=== PATIENT | female | born 1970 | race Caucasian/White ===

== ENCOUNTER 2016-10-02 10:13 | Emergency (ER) | payer MEDICARE, MEDICAID ==
[~2016-10-02] VITALS: Ht 162.6 cm; Wt 72.7 kg
[~2016-10-02 10:13] MED LIST: AMBIEN10 MG PO; AMITRIPTYLIN25 MG PO; AMLODIPINE2.5 MG; AMLODIPINE2.5 MG PO; AMOXICILLIN/PO500 MG PO; BACTRIM DS1 TAB PO; CARVEDILOL3.125 MG PO; CIPROFLOXACN500 MG PO; CLOPIDOGREL75 MG PO; DIFLUCAN150 MG PO; DILAUDID2 MG PO; HYDROCORT AC2.5% TOP; LEVOTHYROXIN150 MCG PO; LEVOTHYROXIN175 MC1 PO; LIPITOR40 M1 PO; LISINOPRIL2.5 MG PO; METFORMIN850 MG PO; NAPROSYN500 MG PO; OXYCODONE HCL5 MG PO; PANTOPRAZOLE SO40 MG PO; PENICILLIN VK250 MG PO; PERCOCET1 TA4 PO; RANITIDINE150 M1 PO; TIZANIDINE HCL4 M1 PO; TOPAMAX100 M1 PO; TOPAMAX200 M1 PO; TOPIRAMATE100 MG PO; TOPIRAMATE50 MG PO; VIMPAT200 MG PO; ZPAK PO; [UNRECOGNIZED DRUG - OTHER] PO; [UNRECOGNIZED DRUG - OTHER] PO
[2016-10-02] MEDS ORDERED: LEVOTHYROXIN175 MC1 PO (10:44)
[2016-10-02] MEDS ORDERED: MORPHINE SUL30 M3 PO (10:46)
[2016-10-02] MEDS ORDERED: PERCOCET 10/31 COMBO PO (10:47)
[2016-10-02] MEDS ORDERED: FUROSEMIDE20 MG PO (10:47)
[2016-10-02] MEDS ORDERED: PANTOPRAZOLE SO40 MG PO (10:48)
[2016-10-02] MEDS ORDERED: RANITIDINE150 M1 PO (10:48)
[2016-10-02 11:05] LABS: HEMATOCRIT 39.8 % (37.0-47.0); HEMOGLOBIN 13.6 g/dl (12.0-16.0); IMMATURE GRANULOCYTES 0.2 % (0.0-1.0); MEAN CELL VOLUME 96.6 fL CALC (80.0-100.0); MEAN CORPUSCULAR HGB CONC 34.2 g/L CALC (32.0-36.0); NEUT# 4.41 thou/uL (2.00-7.15); RED BLOOD COUNT 4.12 mill/uL (4.20-5.60); RED CELL DISTRI WIDTH 13.5 % (11.5-15.5)
[2016-10-02 11:07] LABS: URINE BILIRUBIN - DIPSTICK NEGATIVE (NEGATIVE); URINE BLOOD DIPSTICK SMALL (NEGATIVE); URINE COLOR YELLOW; URINE GLUCOSE - DIPSTICK NEGATIVE (NEGATIVE); URINE KETONE NEGATIVE (NEGATIVE); URINE NITRITE - DIPSTICK NEGATIVE (Negative); URINE PROTEIN - DIPSTICK NEGATIVE (NEG-TRACE); URINE SPECIFIC GRAVITY 1.015; URINE UROBILINOGEN - DIPSTICK 0.2 E.U./dL (0.2)
[2016-10-02 11:08] LABS: URINE CLARITY HAZY; URINE LEUK ESTERASE SMALL (NEGATIVE)
[2016-10-02 11:15] LABS: URINE SQUAMOUS EPITHELIAL CELL MODERATE EPI/hpf (0-FEW)
[2016-10-02 11:23] LABS: ALBUMIN 4.4 g/dL (3.2-5.0); ALKALINE PHOSPHATASE 47 u/l (38-126); ANION GAP 13 (6-22 (CALC)); BILIRUBIN, TOTAL 0.4 mg/dL (0.0-1.4); BUN 10 mg/dL (7-17); BUN/CREATININE RATIO 12 (12-20 (CALC)); CALCIUM 9.8 mg/dL (8.4-10.2); CARBON DIOXIDE 27 mmol/l (22-30); CHLORIDE 109 mmol/l (95-108); CREATININE 0.8 mg/dL (0.5-1.0); GFR > 60 ML/MIN (>=60 (CALC)); GFR FOR AFR.AMER. > 60 ML/MIN (>=60 (CALC)); GLUCOSE 111 mg/dL (65-105); POTASSIUM 4.2 mmol/l (3.5-5.1); SGOT/AST 16 u/l (14-36); SGPT/ALT 24 u/l (9-52); SODIUM 145 mmol/l (137-146); TOTAL PROTEIN 6.6 g/dL (6.3-8.2)
[2016-10-02] MEDS ORDERED: BACTRIM DS1 TAB PO (11:35)
[2016-10-02 11:40] VITALS: BP 95/54
== END 2016-10-02 11:56 | disposition home or self-care (01) ==
LOC: ED 10:13
PROVIDERS: Emergency Medicine
DX: N20.1 Calculus of ureter (principal); E11.9 Type 2 diabetes mellitus without complications; I25.10 Atherosclerotic heart disease of native coronary artery without angina pectoris; I25.2 Old myocardial infarction; E78.00 Pure hypercholesterolemia, unspecified; I10 Essential (primary) hypertension; K21.9 Gastro-esophageal reflux disease without esophagitis; E03.9 Hypothyroidism, unspecified; G40.909 Epilepsy, unspecified, not intractable, without status epilepticus; F17.210 Nicotine dependence, cigarettes, uncomplicated; Z95.5 Presence of coronary angioplasty implant and graft

== ENCOUNTER 2016-10-24 17:42 | Emergency (ER) | payer MEDICARE, MEDICAID ==
[~2016-10-24] VITALS: Ht 162.6 cm; Wt 72.7 kg
[~2016-10-24 17:42] MED LIST changes: +FUROSEMIDE20 MG PO; +MORPHINE SUL30 M3 PO; +PERCOCET 10/31 COMBO PO
[2016-10-24 18:34] LABS: HEMATOCRIT 36.5 % (37.0-47.0); HEMOGLOBIN 12.6 g/dl (12.0-16.0); IMMATURE GRANULOCYTES 0.7 % (0.0-1.0); MEAN CELL VOLUME 95.5 fL CALC (80.0-100.0); MEAN CORPUSCULAR HGB CONC 34.5 g/L CALC (32.0-36.0); NEUT# 5.66 thou/uL (2.00-7.15); RED BLOOD COUNT 3.82 mill/uL (4.20-5.60)
[2016-10-24 18:49] LABS: ALBUMIN 4.2 g/dL (3.2-5.0); ALKALINE PHOSPHATASE 48 u/l (38-126); ANION GAP 14 (6-22 (CALC)); BILIRUBIN, TOTAL 0.3 mg/dL (0.0-1.4); BUN 8 mg/dL (7-17); BUN/CREATININE RATIO 12 (12-20 (CALC)); CALCIUM 9.2 mg/dL (8.4-10.2); CARBON DIOXIDE 26 mmol/l (22-30); CHLORIDE 107 mmol/l (95-108); CREATININE 0.7 mg/dL (0.5-1.0); GFR > 60 ML/MIN (>=60 (CALC)); GFR FOR AFR.AMER. > 60 ML/MIN (>=60 (CALC)); GLUCOSE 96 mg/dL (65-105); POTASSIUM 3.7 mmol/l (3.5-5.1); SGOT/AST 21 u/l (14-36); SGPT/ALT 31 u/l (9-52); SODIUM 143 mmol/l (137-146); TOTAL PROTEIN 6.5 g/dL (6.3-8.2)
[2016-10-24 18:59] LABS: MYOGLOBIN 25 ng/mL (0 - 62)
[2016-10-24 21:12] VITALS: BP 122/70
== END 2016-10-24 21:11 | disposition home or self-care (01) ==
LOC: ED 17:42
PROVIDERS: Emergency Medicine
DX: G40.909 Epilepsy, unspecified, not intractable, without status epilepticus (principal); E11.9 Type 2 diabetes mellitus without complications; I25.10 Atherosclerotic heart disease of native coronary artery without angina pectoris; I25.2 Old myocardial infarction; E78.00 Pure hypercholesterolemia, unspecified; I10 Essential (primary) hypertension; K21.9 Gastro-esophageal reflux disease without esophagitis; E03.9 Hypothyroidism, unspecified; Z95.5 Presence of coronary angioplasty implant and graft; F17.210 Nicotine dependence, cigarettes, uncomplicated; R07.9 Chest pain, unspecified

== ENCOUNTER 2017-05-03 13:02 | Emergency (ER) | payer MEDICARE, MEDICAID ==
[~2017-05-03] VITALS: Ht 162.6 cm; Wt 65.9 kg
[2017-05-03 13:54] LABS: HEMATOCRIT 39.4 % (37.0-47.0); HEMOGLOBIN 13.4 g/dl (12.0-16.0); IMMATURE GRANULOCYTES 0.4 % (0.0-1.0); MEAN CELL VOLUME 93.8 fL CALC (80.0-100.0); MEAN CORPUSCULAR HGB 31.9 pG CALC (26.0-32.0); NEUT# 5.79 thou/uL (2.00-7.15); RED BLOOD COUNT 4.2 mill/uL (4.20-5.60); RED CELL DISTRI WIDTH 12.7 % (11.5-15.5)
[2017-05-03 14:00] LABS: ALBUMIN 3.8 g/dL (3.2-5.0); ALKALINE PHOSPHATASE 98 u/l (38-126); ANION GAP 17 (6-22 (CALC)); BILIRUBIN, TOTAL 0.3 mg/dL (0.0-1.4); BUN 16 mg/dL (7-17); BUN/CREATININE RATIO 23 (12-20 (CALC)); CALCIUM 10.1 mg/dL (8.4-10.2); CARBON DIOXIDE 19 mmol/l (22-30); CHLORIDE 112 mmol/l (95-108); CREATININE 0.7 mg/dL (0.5-1.0); GFR > 60 ML/MIN (>=60 (CALC)); GFR FOR AFR.AMER. > 60 ML/MIN (>=60 (CALC)); GLUCOSE 122 mg/dL (65-105); SGOT/AST 14 u/l (14-36); SGPT/ALT 22 u/l (9-52); SODIUM 145 mmol/l (137-146)
[2017-05-03] MEDS ORDERED: XTAMPZA ER9 MG PO (14:20)
[2017-05-03] MEDS ORDERED: CELEBREX100 M1 PO (14:21)
[2017-05-03 15:06] LABS: BARBITURATES NEGATIVE (NEGATIVE); COCAINE NEGATIVE (NEGATIVE); METHADONE NEGATIVE (NEGATIVE); TETRAHYDROCANNABIONOL NEGATIVE (NEGATIVE); TRICYLIC ANTIDEPRESSANTS NEGATIVE (NEGATIVE)
[2017-05-03 15:07] LABS: OXCYCODONE POSITIVE (NEGATIVE)
[2017-05-03] MEDS ORDERED: TORADOL PO (15:16)
[2017-05-03 15:25] VITALS: BP 106/59
== END 2017-05-03 15:25 | disposition home or self-care (01) ==
LOC: ED 13:02
PROVIDERS: Emergency Medicine
DX: R07.89 Other chest pain (principal); M25.512 Pain in left shoulder; F17.210 Nicotine dependence, cigarettes, uncomplicated; R06.02 Shortness of breath; R61 Generalized hyperhidrosis

== ENCOUNTER 2017-07-18 05:28 | Day surgery (SDC) | payer MEDICARE, MEDICAID ==
[~2017-07-18] VITALS: Ht 162.6 cm; Wt 65.8 kg
[~2017-07-18 05:28] MED LIST changes: +CELEBREX100 M1 PO; +MIRALAX3350 NF PO; +OMEPRAZOLE20 MG PO; +OXYCODONE/ACETA1 TA4 PO; +SM IBUPROFEN200 MG PO; +TORADOL PO; +XTAMPZA ER9 MG PO
[2017-07-18] MEDS ORDERED: PERCOCET 10/31 COMBO PO (09:40)
[2017-07-18 10:04] VITALS: BP 145/68
== END 2017-07-18 10:00 | disposition home or self-care (01) ==
LOC: ORM 05:28
PROVIDERS: ATTEND Orthopaedic Surgery
PROC: 0SBC4ZZ Excision of Right Knee Joint, Percutaneous Endoscopic Approach (ICD-10-PCS; principal; 2017-07-18)
DX: S83.231A Complex tear of medial meniscus, current injury, right knee, initial encounter (principal); S83.281A Other tear of lateral meniscus, current injury, right knee, initial encounter; M65.9 Synovitis and tenosynovitis, unspecified; M94.261 Chondromalacia, right knee; W17.2XXA Fall into hole, initial encounter

== ENCOUNTER 2017-09-30 10:35 | Emergency (ER) | payer MEDICARE, MEDICAID ==
[~2017-09-30] VITALS: Ht 162.6 cm; Wt 62.4 kg
[2017-09-30 11:34] LABS: HEMATOCRIT 44.3 % (37.0-47.0); HEMOGLOBIN 15.1 g/dl (12.0-16.0); IMMATURE GRANULOCYTES 0.8 % (0.0-1.0); MEAN CELL VOLUME 93.5 fL CALC (80.0-100.0); MEAN CORPUSCULAR HGB 31.9 pG CALC (26.0-32.0); MEAN CORPUSCULAR HGB CONC 34.1 g/L CALC (32.0-36.0); NEUT# 7.31 thou/uL (2.00-7.15); RED BLOOD COUNT 4.74 mill/uL (4.20-5.60); RED CELL DISTRI WIDTH 12.7 % (11.5-15.5)
[2017-09-30 11:50] LABS: ALKALINE PHOSPHATASE 91 u/l (38-126); ANION GAP 22 (6-22 (CALC)); BILIRUBIN, TOTAL 0.6 mg/dL (0.0-1.4); BUN 27 mg/dL (7-17); BUN/CREATININE RATIO 30 (12-20 (CALC)); CARBON DIOXIDE 20 mmol/l (22-30); CHLORIDE 107 mmol/l (95-108); CREATININE 0.9 mg/dL (0.5-1.0); GFR > 60 ML/MIN (>=60 (CALC)); GFR FOR AFR.AMER. > 60 ML/MIN (>=60 (CALC)); POTASSIUM 3.8 mmol/l (3.5-5.1); SGOT/AST 19 u/l (14-36); SGPT/ALT 36 u/l (9-52); SODIUM 145 mmol/l (137-146); TOTAL PROTEIN 7.9 g/dL (6.3-8.2)
[2017-09-30 11:51] LABS: ALBUMIN 4.8 g/dL (3.2-5.0)
[2017-09-30 12:13] VITALS: BP 151/84
== END 2017-09-30 12:16 | disposition home or self-care (01) ==
LOC: ED 10:35
DX: N92.0 Excessive and frequent menstruation with regular cycle (principal); R10.30 Lower abdominal pain, unspecified; F17.200 Nicotine dependence, unspecified, uncomplicated

== ENCOUNTER 2018-06-07 19:36 | Emergency (ER) | payer MEDICARE, MEDICAID ==
[~2018-06-07] VITALS: Ht 162.6 cm; Wt 68.0 kg
[2018-06-07 19:58] LABS: HEMATOCRIT 40.9 % (37.0-47.0); HEMOGLOBIN 13.1 g/dl (12.0-16.0); IMMATURE GRANULOCYTES 0.5 % (0.0-5.0); MEAN CELL VOLUME 96.2 fL CALC (80.0-100.0); MEAN CORPUSCULAR HGB 30.8 pG CALC (26.0-32.0); NEUT# 8.09 thou/uL (2.00-7.15); RED BLOOD COUNT 4.25 mill/uL (4.20-5.60); RED CELL DISTRI WIDTH 12.3 % (11.5-15.5)
[2018-06-07 20:19] LABS: ALBUMIN 4.3 g/dL (3.2-5.0); ALKALINE PHOSPHATASE 71 u/l (38-126); BILIRUBIN, TOTAL 0.3 mg/dL (0.0-1.4); BUN 12 mg/dL (7-17); BUN/CREATININE RATIO 20 (12-20 (CALC)); CARBON DIOXIDE 24 mmol/l (22-30); CHLORIDE 107 mmol/l (95-108); CREATININE 0.6 mg/dL (0.5-1.0); ETHYL ALCOHOL 0 mg/dl (0-30); GFR > 60 ML/MIN (>=60 (CALC)); GFR FOR AFR.AMER. > 60 ML/MIN (>=60 (CALC)); SGOT/AST 15 u/l (14-36); SODIUM 142 mmol/l (137-146); TOTAL PROTEIN 6.6 g/dL (6.3-8.2)
[2018-06-07 20:20] LABS: ANION GAP 16 (6-22 (CALC)); POTASSIUM 4.7 mmol/l (3.5-5.1)
[2018-06-07] MEDS ORDERED: MELOXICAM15 MG PO (20:20)
[2018-06-07] MEDS ORDERED: FYCOMPA2 MG PO (20:21)
[2018-06-07] MEDS ORDERED: ALL DAY ALLG10 MG PO (20:22)
[2018-06-07] MEDS ORDERED: [UNRECOGNIZED DRUG - OTHER] IN (20:27)
[2018-06-07 21:15] LABS: URINE BILIRUBIN - DIPSTICK NEGATIVE (NEGATIVE); URINE BLOOD DIPSTICK SMALL (NEGATIVE); URINE COLOR YELLOW; URINE GLUCOSE - DIPSTICK NEGATIVE (NEGATIVE); URINE KETONE NEGATIVE (NEGATIVE); URINE LEUK ESTERASE NEGATIVE (NEGATIVE); URINE NITRITE - DIPSTICK NEGATIVE (Negative); URINE PROTEIN - DIPSTICK NEGATIVE (NEG-TRACE); URINE UROBILINOGEN - DIPSTICK 0.2 E.U./dL (0.2)
[2018-06-07 21:17] LABS: URINE RBC 0-2 RBC/hpf (0-5); URINE SQUAMOUS EPITHELIAL CELL FEW EPI/hpf (0-FEW); URINE WBC 0-2 WBC/hpf (0-5)
[2018-06-07 21:19] LABS: BARBITURATES NEGATIVE (NEGATIVE); COCAINE NEGATIVE (NEGATIVE); METHADONE NEGATIVE (NEGATIVE); OXCYCODONE POSITIVE (NEGATIVE); TETRAHYDROCANNABIONOL NEGATIVE (NEGATIVE); TRICYLIC ANTIDEPRESSANTS NEGATIVE (NEGATIVE)
[2018-06-07] MEDS ORDERED: TOPAMAX200 MG PO (21:29)
[2018-06-07] MEDS ORDERED: VIMPAT200 MG PO (21:29)
[2018-06-07 22:00] VITALS: BP 101/54
== END 2018-06-07 22:25 | disposition home or self-care (01) ==
LOC: ED 19:36
PROVIDERS: Family Medicine
DX: G40.909 Epilepsy, unspecified, not intractable, without status epilepticus (principal); T42.76XA Underdosing of unspecified antiepileptic and sedative-hypnotic drugs, initial encounter; I25.2 Old myocardial infarction; F17.200 Nicotine dependence, unspecified, uncomplicated; Z91.128 Patient's intentional underdosing of medication regimen for other reason
CPT/HCPCS: J2060

== ENCOUNTER 2019-09-17 14:24 | Emergency (ER) | payer MEDICARE, MEDICAID ==
[~2019-09-17 14:24] MED LIST changes: +ALL DAY ALLG10 MG PO; +FYCOMPA2 MG PO; +MELOXICAM15 MG PO; +TOPAMAX200 MG PO; +[UNRECOGNIZED DRUG - OTHER] IN
[2019-09-17] MEDS ORDERED: ZANAFLEX6 MG PO (15:10)
[2019-09-17] MEDS ORDERED: ULTRAM50 M1 PO (19:25)
[2019-09-17 19:42] VITALS: BP 123/69
== END 2019-09-17 19:42 | disposition home or self-care (01) ==
LOC: ED 14:24
DX: S43.102A Unspecified dislocation of left acromioclavicular joint, initial encounter (principal); S63.502A Unspecified sprain of left wrist, initial encounter; S73.102A Unspecified sprain of left hip, initial encounter; E11.9 Type 2 diabetes mellitus without complications; E03.9 Hypothyroidism, unspecified; G40.909 Epilepsy, unspecified, not intractable, without status epilepticus; F17.210 Nicotine dependence, cigarettes, uncomplicated; I25.2 Old myocardial infarction; Y92.008 Other place in unspecified non-institutional (private) residence as the place of occurrence of the external cause; W01.0XXA Fall on same level from slipping, tripping and stumbling without subsequent striking against object, initial encounter; Z79.84 Long term (current) use of oral hypoglycemic drugs

== ENCOUNTER 2020-05-28 14:59 | Emergency (ER) | payer MEDICARE, MEDICAID ==
[~2020-05-28] VITALS: Ht 162.6 cm; Wt 68.0 kg
[~2020-05-28 14:59] MED LIST changes: +ULTRAM50 M1 PO; +ZANAFLEX6 MG PO
[2020-05-28 17:09] VITALS: BP 99/56
[2020-05-28 17:32] LABS: IMMATURE GRANULOCYTES 0.5 % (0.0-5.0); MEAN CORPUSCULAR HGB 18.9 pG CALC (26.0-32.0); MEAN CORPUSCULAR HGB CONC 25.8 g/dL CAL (32.0-36.0); NEUT# 4.88 thou/uL (2.00-7.15); RED BLOOD COUNT 2.86 mill/uL (4.20-5.60); RED CELL DISTRI WIDTH 20.3 % (11.5-15.5)
[2020-05-28 17:37] LABS: HEMATOCRIT 20.9 % (37.0-47.0); HEMOGLOBIN 5.4 g/dl (12.0-16.0); MEAN CELL VOLUME 73.1 fL CALC (80.0-100.0)
[2020-05-28 17:43] LABS: ALBUMIN 2.8 g/dL (3.2-5.0); ALKALINE PHOSPHATASE 56 u/l (38-126); ANION GAP 8 (6-22 (CALC)); BUN 13 mg/dL (7-17); BUN/CREATININE RATIO 17 (12-20 (CALC)); CARBON DIOXIDE 24 mmol/l (22-30); CHLORIDE 110 mmol/l (95-108); CREATININE 0.8 mg/dL (0.5-1.0); GFR > 60 ML/MIN (>=60 (CALC)); GFR FOR AFR.AMER. > 60 ML/MIN (>=60 (CALC)); POTASSIUM 3.7 mmol/l (3.5-5.1); SGOT/AST 17 u/l (14-36); SODIUM 138 mmol/l (137-146); TOTAL PROTEIN 4.8 g/dL (6.3-8.2)
[2020-05-28 17:50] LABS: ACT PARTIAL THROMBO TIME 22.5 SECONDS (20.0-32.5); PROTHROMBIN TIME 9.6 SECONDS (9.0-12.5)
[2020-05-28] MEDS ORDERED: TIZANIDINE HCL4 M1 PO (18:25)
[2020-05-28] MEDS ORDERED: MELOXICAM7.5 MG PO (18:26)
[2020-05-28] MEDS ORDERED: LASIX 20 MG TAB20 MG PO (18:27)
[2020-05-28] MEDS ORDERED: AMITRIPTYLIN25 MG PO (18:29)
[2020-05-28] MEDS ORDERED: K-TABS10 MEQ PO (18:29)
[2020-05-29] MEDS ORDERED: PROTONIX40 M2 PO (10:55)
== END 2020-05-28 17:09 | disposition left against medical advice (07) ==
LOC: ED 14:59
PROVIDERS: Student in an Organized Health Care Education/Training Program
DX: R53.1 Weakness (principal); R06.02 Shortness of breath; R42 Dizziness and giddiness; Z91.19 Patient's noncompliance with other medical treatment and regimen; G40.909 Epilepsy, unspecified, not intractable, without status epilepticus; E03.9 Hypothyroidism, unspecified; E11.9 Type 2 diabetes mellitus without complications; G89.29 Other chronic pain; R07.81 Pleurodynia; F17.200 Nicotine dependence, unspecified, uncomplicated; I25.2 Old myocardial infarction; Z79.84 Long term (current) use of oral hypoglycemic drugs; R79.9 Abnormal finding of blood chemistry, unspecified

== ENCOUNTER 2020-05-28 17:59 | Inpatient (IN) | payer MEDICARE, MEDICAID ==
[~2020-05-28] VITALS: Ht 162.6 cm; Wt 66.7 kg
--- NOTE | 2020-05-28 18:10 | NUR ---
PATIENT AMBULATED TO ROOM WITH STEADY GAIT AND PATIENT STATES NEVER MADE IT HOME TO TAKE HER PAIN MEDICATION. MD NOTIFIED OF PATIENT STATUS
[2020-05-28] MEDS ORDERED: TIZANIDINE HCL4 M1 PO (18:25)
[2020-05-28] MEDS ORDERED: MELOXICAM7.5 MG PO (18:26)
[2020-05-28] MEDS ORDERED: LASIX 20 MG TAB20 MG PO (18:27)
[2020-05-28] MEDS ORDERED: AMITRIPTYLIN25 MG PO (18:29)
[2020-05-28] MEDS ORDERED: K-TABS10 MEQ PO (18:29)
--- NOTE | 2020-05-28 19:15 | NUR ---
Reassessment of patient completed. No distress noted.
[2020-05-28 19:52] VITALS: BP 91/52
[2020-05-28 20:02] VITALS: BP 91/52
--- NOTE | 2020-05-28 20:10 | NUR ---
Reassessment of patient completed. No distress noted.
[2020-05-28 20:18] VITALS: BP 96/51
[2020-05-28 20:52] VITALS: BP 93/54
--- NOTE | 2020-05-28 21:08 | NUR ---
REPORT TO ARIELLE
[2020-05-28 21:15] VITALS: BP 97/57
--- NOTE | 2020-05-28 21:15 | NUR ---
PT ARRIVED TO MED SURG UNIT VIA STRETCHER ACCOMPANIED BY ED NURSE. PT APPEARS TO BE IN STABLE CONDITION. BLOOD IS RUNNING AT THIS TIME.
--- NOTE | 2020-05-28 22:40 | NUR ---
PT ASSESSED, TOLERATING BLOOD TRANSFUSION WELL. V/S ARE STABLE. PT MEDICATED ORDERS PROVIDE AND ALL MEDICATIONS DISCUSSED WITH HER TO COMPARE TO HOME MEDICATIONS. PT INFORMED THAT WE DO NOT CARRY TWO OF HER HOME MEDICATIONS, SHE VERBALIZED ANGER AND FRUSTRATION STATING THAT ED DID NOT TELL HER THAT WE DID NOT CARRY THOSE AND SHE DOES NOT HAVE ANYONE THAT CAN BRING THEM IN THE MORNING TO HER. SHE WAS EXTREMELY FRUSTRATED SEEMING, MOMENTARILY BELIGERENT, BUT QUICKLY CALMED AND ASKED IF SHE COULD HAVE A SNACK/PROVIDED. PT WAS CALM AND NO LONGER APPEARED TO BE UPSET PRIOR TO MY LEAVING THE ROOM. I APOLOGIZED FOR THE LACK OF INFORMATION GIVEN TO HER REGARDING THE MEDICATION.
[2020-05-28 23:00] VITALS: BP 96/62
--- NOTE | 2020-05-28 23:00 | NUR ---
1ST UNIT OF PRBC'S TRANSFUSION COMPLETED AT THIS TIME. NO S/O DISTRESS NOTED. PT DENIES SOB, ITCHING OR ANY OTHER SYMPTOMS. V/S ARE STABLE.
--- NOTE | 2020-05-28 23:44 | NUR ---
PT C/O PAIN, SHE ASKED ME WHEN I WALKED IN THE ROOM IF I GAVE HER PAIN MEDICATIONS, I INFORMED HER THAT I HAD PREVIOUSLY GIVEN THEM TO HER ASK REQUESTED. I SHOWED HER THE TIMING ON THE JUN IN THE COMPUTER AND INFORMED HER THAT I WAS GOING TO GO GET HER 2ND UNIT OF PRBC, SHE EXCLAIMED "DON'T BOTHER I'M NOT FUCKING STAYING." SHE JUMPED UP AND GASPED IN PAIN HOLDING HER LEFT LEG ALMOST FALLING. I STOOD NEXT TO HER TO STABALIZE. SHE BELIGERANTLY C/O BEING IN THE HOSPITAL, OF HAVING TO GET SURGERY, I PROCEEDED TO ASK HER WHAT SHE WAS HAVING DONE, SHE VERBALIZED THAT SHE DOES NOT THINK WHAT THE DOCTOR IS PLANNING TO DO WILL FIX IT. SHE C/O NO MEDICATIONS HELP. I OFFERED WARMPACKS, COMFORT MEASURES. SHE C/O BED BEING TOO HARD. DENIED ALL OTHER COMFORT MEASURES. SHE THEN SAT ON THE BED AND STATED WHY AREN'T YOU FUCKING HURRYING UP AND GETTING THIS BLOOD IN ME, ISN'T THAT WHY I'M FUCKING HERE? I EXPLAINED TO HER THAT I WILL RETURN WITH THE BLOOD QUICKLY I CAN, IF SHE WANTED TO PROCEED. SHE APOLOGIZED AND SAID YES PLEASE. I STATED THAT IT WAS OKAY AND I WOULD BE RIGHT BACK WITH THE BLOOD TO TRANSFUSE.
[2020-05-29] VITALS (8 sets, daily range): BP systolic 90–110; BP diastolic 45–63
--- NOTE | 2020-05-29 00:49 | NUR ---
2ND UNIT OF PRBC STARTED AT THIS TIME. I EXPLAINED TO HER TO LET ME KNOW IF SHE HAD ANY SOB, ITCHING, ANY DISTRESSES OR FEELING OUT OF THE NORM, SHE VERBALIZED UNDERSTANDING. PT IS NOW IN BED WITH LIGHTS TURNED LOW.
--- NOTE | 2020-05-29 01:01 | NUR ---
15 MIN V/S FOR PRBC TRANSFUSION ASSESSED TO BE STABLE. I HAVE BEEN WITH PT FROM START OF TRANSFUSION, SHE DENIES ANY NEGATIVE REACTIONS AT THIS TIME. DENIES ITCHING OR SOB, N/V. PT IS ATTEMPTING TO GO TO SLEEP AT THIS TIME. SHE APPEARS CALM AND THANKED ME FOR HELPING HER.
--- NOTE | 2020-05-29 01:46 | NUR ---
PT IS SITTING IN RECLINER WITH IVPOLE ON THE OTHER SIDE OF THE BED ACROSS THE ROOM AND IV TUBING STRETCHING ACROSS ROOM TIGHT. I ASSISTED PT IN MOVING IVPOLE AND ADVISED HER TO BE CAREFUL WITH THE TUBING OR IT WOULD PULL HER IV OUT, SHE STATED "WHATEVER." V/S ASSESSED AT THIS TIME. PT GRUMBLED "AGAIN, THIS IS REDICULOUS." I DID NOT REPLY. I ASKED HER IF SHE WAS FEELING ANY SIDE AFFECTS OF BLOOD TRANSFUSION, SHE SAID "NO."
--- NOTE | 2020-05-29 03:39 | NUR ---
BLOOD NEAR COMPLETION. PT MEDICATED FOR PAIN AT THIS TIME.
--- NOTE | 2020-05-29 03:55 | NUR ---
2ND TRANSFUSION OF PRBC COMPLETED AT THIS TIME. PT REPORTS FEELING MUCH BETTER, SHE SEEMS CALMER, BUT IS ASKING FOR ADDITIONAL PAIN MEDICATION. SHE IS IN BED WITH LIGHTS OUT, REPORTED HAVING JUST FALLEN ASLEEP. MEDICATION PROVIDED FOR PAIN IN BACK AND DOWN LEFT LEG.
[2020-05-29 06:31] LABS: HEMATOCRIT 25.6 % (37.0-47.0); HEMOGLOBIN 7.3 g/dl (12.0-16.0); IMMATURE GRANULOCYTES 0.6 % (0.0-5.0); MEAN CELL VOLUME 72.1 fL CALC (80.0-100.0); MEAN CORPUSCULAR HGB 20.6 pG CALC (26.0-32.0); MEAN CORPUSCULAR HGB CONC 28.5 g/dL CAL (32.0-36.0); NEUT# 3.92 thou/uL (2.00-7.15); RED BLOOD COUNT 3.55 mill/uL (4.20-5.60)
[2020-05-29 06:49] LABS: ANION GAP 6 (6-22 (CALC)); BUN 12 mg/dL (7-17); BUN/CREATININE RATIO 16 (12-20 (CALC)); CARBON DIOXIDE 21 mmol/l (22-30); CHLORIDE 113 mmol/l (95-108); CREATININE 0.7 mg/dL (0.5-1.0); GFR > 60 ML/MIN (>=60 (CALC)); GFR FOR AFR.AMER. > 60 ML/MIN (>=60 (CALC)); POTASSIUM 3.7 mmol/l (3.5-5.1); SODIUM 137 mmol/l (137-146)
--- NOTE | 2020-05-29 07:35 | NUR ---
PATIENT IN BED AT THIS TIME. PATIENT DEMANDING THAT I GO AND GET HER PAIN MEDICATON. I REMINDED PATIENT THAT SHE WAS JUST PREVIOUSLY MEDICATED AND I COULD NOT GIVE HER ANYMORE. PATIENT BECAME BILIGERANT AND CUSSING AND STATED "YOU CAN GET YOUR ASS OUT THERE AND GIVE ME MORE MEDS I TAKE ALOT MORE". I TOLD PATIENT I NEEDED TO DO MY ASSESSMEN AND INFORMATION SERVICES MANAGER WAS DONE SIDERAILS ARE UP CALL LIGHT WITHIN REACH.
[2020-05-29] MEDS ORDERED: PROTONIX40 M2 PO (10:55)
--- NOTE | 2020-05-29 11:02 | NUR ---
PATIENT MEDICATED AT THIS TIME WIHT OXYCODONE 10/325MG ONE TAB FOR GENERALIZED PAIN IN BACK AND LOWER BODY AT THIS TIME. WILL CONTINUE TO MONITOR.
--- NOTE | 2020-05-29 11:48 | NUR ---
PATIENT RESTING IN BED AT THIS TIME. PATIENT STATES HER PAIN IS A 6 AND THE PAIN MED IS WORKING "A LITTLE". SIDERAILS UP CALL LIGHT WITHIN REACH.
--- NOTE | 2020-05-29 13:00 | NUR ---
PATIENT D/C AT THIS TIME JEAN VERBALIZES UNDERSTANDING OF D/C PLAN.
--- NOTE | 2020-05-29 13:07 | NUR ---
Discharge instructions given. Patient verbalizes understanding of same. Discharged in stable condition via Wheelchair to Home with *Other. All belongings sent with pt.
[2020-05-30 09:52] VITALS: BP 99/49
== END 2020-05-29 13:10 | disposition home or self-care (01) | DRG 812 ==
LOC: ED 17:59 → ED-I 18:15 → ED 18:23 → MS2 18:24
PROVIDERS: Internal Medicine; ADMIT Internal Medicine; ATTEND Internal Medicine
PROC: 30233N1 Transfusion of Nonautologous Red Blood Cells into Peripheral Vein, Percutaneous Approach (ICD-10-PCS; principal; 2020-05-28)
PROC: 30233N1 Transfusion of Nonautologous Red Blood Cells into Peripheral Vein, Percutaneous Approach (ICD-10-PCS; 2020-05-29)
DX: D50.9 Iron deficiency anemia, unspecified (principal); E11.9 Type 2 diabetes mellitus without complications; E03.9 Hypothyroidism, unspecified; G89.29 Other chronic pain; M54.9 Dorsalgia, unspecified; I25.10 Atherosclerotic heart disease of native coronary artery without angina pectoris; E78.5 Hyperlipidemia, unspecified; I50.9 Heart failure, unspecified; G40.909 Epilepsy, unspecified, not intractable, without status epilepticus; F17.200 Nicotine dependence, unspecified, uncomplicated; I25.2 Old myocardial infarction; Z79.84 Long term (current) use of oral hypoglycemic drugs; Z95.5 Presence of coronary angioplasty implant and graft; Z87.11 Personal history of peptic ulcer disease; Z79.02 Long term (current) use of antithrombotics/antiplatelets; Z79.82 Long term (current) use of aspirin; Z79.1 Long term (current) use of non-steroidal anti-inflammatories (NSAID); Z20.822 Contact with and (suspected) exposure to COVID-19
CPT/HCPCS: J1756; P9016

== ENCOUNTER 2020-10-22 19:32 | Emergency (ER) | payer MEDICARE, MEDICAID ==
[~2020-10-22] VITALS: Ht 162.6 cm; Wt 68.2 kg
[~2020-10-22 19:32] MED LIST changes: +K-TABS10 MEQ PO; +LASIX 20 MG TAB20 MG PO; +MELOXICAM7.5 MG PO; +PROTONIX40 M2 PO
[2020-10-22 19:58] VITALS: BP 119/60
[2020-10-22 20:06] LABS: IMMATURE GRANULOCYTES 0.1 % (0.0-5.0); MEAN CORPUSCULAR HGB 24.8 pG CALC (26.0-32.0); MEAN CORPUSCULAR HGB CONC 29.1 g/dL CAL (32.0-36.0); NEUT# 4.69 thou/uL (2.00-7.15); RED BLOOD COUNT 4.31 mill/uL (4.20-5.60)
[2020-10-22 20:08] LABS: HEMATOCRIT 36.8 % (37.0-47.0); HEMOGLOBIN 10.7 g/dl (12.0-16.0); MEAN CELL VOLUME 85.4 fL CALC (80.0-100.0)
[2020-10-22 20:18] LABS: ALKALINE PHOSPHATASE 58 u/l (38-126); ANION GAP 13 (6-22 (CALC)); BUN 14 mg/dL (7-17); BUN/CREATININE RATIO 16 (12-20 (CALC)); CARBON DIOXIDE 23 mmol/l (22-30); CHLORIDE 109 mmol/l (95-108); CREATININE 0.9 mg/dL (0.5-1.0); ETHYL ALCOHOL 0 mg/dl (0-30); GFR > 60 ML/MIN (>=60 (CALC)); GFR FOR AFR.AMER. > 60 ML/MIN (>=60 (CALC)); POTASSIUM 3.4 mmol/l (3.5-5.1); SODIUM 141 mmol/l (137-146)
[2020-10-22 20:39] LABS: ALBUMIN 3.7 g/dL (3.2-5.0); SGOT/AST 38 u/l (14-36); TOTAL PROTEIN 6.3 g/dL (6.3-8.2)
== END 2020-10-22 20:28 | disposition left against medical advice (07) ==
LOC: ED 19:32
PROVIDERS: Family Medicine
DX: G40.409 Other generalized epilepsy and epileptic syndromes, not intractable, without status epilepticus (principal); E03.9 Hypothyroidism, unspecified; E11.9 Type 2 diabetes mellitus without complications; I25.2 Old myocardial infarction; F17.200 Nicotine dependence, unspecified, uncomplicated; Z79.84 Long term (current) use of oral hypoglycemic drugs; Z91.19 Patient's noncompliance with other medical treatment and regimen